=== PATIENT | female | born 1950 | race Caucasian/White ===

== ENCOUNTER 2016-12-11 19:39 | Emergency (ER) | payer MEDICARE ==
[2016-12-11 20:42] VITALS: BP 113/65
[2016-12-11] MEDS ORDERED: Fluorescein Sodium TOPICAL* 1 MG TEST ONE (20:55)
[2016-12-11] MEDS ORDERED: BSS OPTH.SOL* BTL ONE ×2 (20:56→20:57)
[2016-12-11] MEDS ORDERED: Tetracaine 0.5% OPTH.SOL 15ML* BTL ONE (20:58)
--- NOTE | 2016-12-11 21:39 | UC ---
Eye Complaint HPI - HPI Summary HPI Summary: ONSET OF LEFT EYE IRRITATION YESTERDAY AFTERNOON. HAS FB SENSATION AND SLIGHT TEARING. NO VISUAL DISTURBANCE, PHOTOPHOBIA, GUPTA OR NAUSEA. DOES NOT WEAR CONTACTS. NO HELP WITH OTC EYE GEL. - History of Current Complaint Chief Complaint: UCEye Stated Complaint: EYE IRRITATION Time Seen by Provider: 12/11/16 20:53 Hx Obtained From: Patient Hx Last Menstrual Period: 2002 Onset/Duration: Sudden Onset, Lasting Days, Still Present Timing: Constant Severity Initially: Moderate Severity Currently: Moderate Pain Intensity: 3 Pain Scale Used: 0-10 Numeric Character: Foreign Body Sensation Aggravating Factor(s): Blinking Alleviating Factor(s): Nothing Associated Signs And Symptoms: Positive: Drainage (Clear). Negative: Photophobia, Drainage (Purulent), Vision Impairment Bilateral, Vision Impairment Right, Vision Impairment Left, Fever, Swelling - Allergies/Home Medications Allergies/Adverse Reactions: Allergies Allergy/AdvReac Type Severity Reaction Status Date / Time Epinephrine Allergy Anaphylatic Verified 12/11/16 20:46 Shock [place] Allergy Rash And Verified 12/11/16 20:43 [From Resource Dairy Thick] Itching PMH/Surg Hx/FS Hx/Imm Hx Previously Healthy: Yes Endocrine History Of: Denies: Diabetes, Thyroid Disease Cardiovascular History Of: Denies: Cardiac Disorders, Hypertension Respiratory History Of: Denies: COPD, Asthma GI/ History Of: Denies: Ulcer Cancer History Of: Denies: Breast Cancer - Surgical History Surgical History: Yes Surgery Procedure, Year, and Place: D&C 1990 - Family History Known Family History: Negative: Hypertension - Social History Alcohol Use: Weekly Substance Use Type: None Smoking Status (MU): Never Smoked Tobacco - Immunization History Most Recent Influenza Vaccination: denies Review of Systems Constitutional: Negative Eyes: Drainage, Eye Redness, Other - FB SENSATION LEFT EYE Respiratory: Negative Cardiovascular: Negative Gastrointestinal: Negative Neurological: Negative All Other Systems Reviewed And Are Negative: Yes Physical Exam Triage Information Reviewed: Yes Appearance: Well-Appearing, No Pain Distress, Well-Nourished Vital Signs: Initial Vital Signs Temp 98.7 F 12/11/16 20:35 Pulse 60 12/11/16 20:35 Resp 18 12/11/16 20:35 BP 113/65 12/11/16 20:35 Pulse Ox 97 12/11/16 20:35 Vital Signs Reviewed: Yes Eyes: Positive: Conjunctiva Inflamed - LEFT EYE, Discharge - CLEAR DISCHARGE LEFT EYE, Other: - FLUORESCEIN UPTAKE LOWER CORNEA IN A LINEAR STREAK ENT: Positive: Hearing grossly normal Neck: Positive: Supple Respiratory: Positive: No respiratory distress, No accessory muscle use Cardiovascular: Positive: Pulses Normal Abdomen Description: Positive: Soft Musculoskeletal: Positive: No Edema Neurological: Positive: Alert Psychological: Positive: Age Appropriate Behavior Skin: Negative: rashes Eye Complaint Course/Dx - Differential Dx/Diagnosis Provider Diagnoses: LEFT EYE CORNEAL ABRASION Discharge - Discharge Plan Condition: Stable Disposition: HOME Prescriptions: Ketorolac Tromethamine (Ophth) [Acuvail] 0.5 % LEFT EYE QID PRN #1 bottle PRN Reason: Pain Patient Education Materials: Corneal Abrasion (ED) Referrals: Kathy Nayak MD [Primary Care Provider] - If Needed Additional Instructions: FOLLOW-UP WITH YOUR EYE DOCTOR IF YOUR SYMPTOMS ARE NOT IMPROVING EXPECTED OVER THE NEXT SEVERAL DAYS.
[2016-12-11] MEDS ORDERED: Ciprofloxacin 0.3% OPTH.SOL* 2.5 ML BTL LEFT EYE ONE (21:43)
== END 2016-12-11 21:53 | disposition home or self-care (01) ==
LOC: UCEAST 19:39
DX: S05.02XA Injury of conjunctiva and corneal abrasion without foreign body, left eye, initial encounter (principal); X58.XXXA Exposure to other specified factors, initial encounter; Y93.9 Activity, unspecified; Y92.9 Unspecified place or not applicable
CPT/HCPCS: 99212; A9270-GY; G0463

== ENCOUNTER 2019-02-22 07:13 | Emergency (ER) | payer MEDICARE ==
[2019-02-22 07:25] VITALS: BP 106/69
--- NOTE | 2019-02-22 07:50 | UC ---
Respiratory Complaint HPI - HPI Summary HPI Summary: Patient states starting on Saturday she had a sore throat. Patient states evening she developed a cough. Patient states yesterday she felt like it was congested tight in her chest. Patient states last night she developed a temperature to 100.4. Patient states her cough started to loosen and she's bringing up some yellow sputum. Patient states she had a fever again this morning and took Tylenol. Patient states her breathing feels better today. No wheeze. Mild head congestion no ear pain. Patient eating and drinking but less appetite. No nausea vomiting. No rash. 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 Patient's medications reviewed this visit. Patient is not immunocompromised - History of Current Complaint Chief Complaint: UCGeneralIllness Stated Complaint: FEVER/ COUGH/ SORE THROAT Time Seen by Provider: 02/22/19 07:31 Hx Obtained From: Patient Hx Last Menstrual Period: 2002 Severity Initially: Mild Severity Currently: Mild Pain Intensity: 2 - Allergies/Home Medications Allergies/Adverse Reactions: Allergies Allergy/AdvReac Type Severity Reaction Status Date / Time epinephrine Allergy Anaphylatic Verified 02/22/19 07:27 Shock dairy Allergy Unknown Uncoded 02/22/19 07:27 Reaction Details Home Medications: Home Medications Acetaminophen TAB* [Tylenol TAB*] 1,000 mg PO ONCE PRN 02/22/19 [History Confirmed 02/22/19] PMH/Surg Hx/FS Hx/Imm Hx Previously Healthy: Yes Respiratory History: Asthma - as child - Surgical History Surgical History: Yes Surgery Procedure, Year, and Place: D&C 1990 - Family History Known Family History: Positive: Non-Contributory Negative: Hypertension - Social History Occupation: Employed Full-time Lives: With Family Alcohol Use: Weekly Substance Use Type: None Smoking Status (MU): Never Smoked Tobacco - Immunization History Most Recent Influenza Vaccination: denies Review of Systems All Other Systems Reviewed And Are Negative: Yes Constitutional: Positive: Fever ENT: Positive: Sore Throat Respiratory: Positive: Cough Is Patient Immunocompromised?: No Physical Exam - Summary Physical Exam Summary: Vital Signs Reviewed: Yes A+Ox3, tired appearing Eyes: Conjunctiva Clear, IMRANDA. EOM intact and full ENT: Hearing grossly normal TM x 2 clear, mmoist, uvula midline, no exudate, no erythema Neck: Positive: Supple Respiratory: Positive: No respiratory distress, No accessory muscle use + mild intermittent cough decreased BS left base few scattered wheeze, speaking full easy sentences Cardiovascular: RRR nl s1, s2 no m/r CBT <2 sec abd soft + BS nt/nd no guarding, no distension Musculoskeletal Exam: RICHARDS x 4 without difficulty Strength Intact, ROM Intact Neurological: Positive: Alert, + sensation throughout Psychological: Positive: Normal Response To Family Skin: Positive: no rash, no ecchymosis Triage Information Reviewed: Yes Vital Signs: Initial Vital Signs Temp 98.5 F 02/22/19 07:18 Pulse 102 02/22/19 07:18 Resp 18 02/22/19 07:18 BP 106/69 02/22/19 07:18 Pulse Ox 93 02/22/19 07:18 Diagnostics - Radiology No standard instances Radiology Interpretation Completed By: Radiologist - Patient Name: DOTTIE CANELA Medical Record#: [id number] Ordering Physician: Kim Lockett MD Acct.#: [id number] : 1950 Age: 68 Sex: F Location: [facility] Exam Date: 02/22/19 0759 ADM Status: REG ER Order Information: CHEST PA & LAT 2 VWS Accession Number: [id number] CPT: 61284 INDICATION: Cough with audible wheezing at the left lung base COMPARISON: None TECHNIQUE: PA and lateral views of the chest were obtained. FINDINGS: The heart and mediastinum are normal in size and contour. On the AP view there is a focal density at the left lower lung. This may correspond to the focal density seen at the anterior lung base in the lateral view. In addition there is density overlying the costophrenic angle on the lateral view. Elsewhere the lungs are grossly clear. There is no evidence of large pleural effusion. Visualized bones are normal for the patient's age. There is no radiographic evidence of free air beneath the diaphragm IMPRESSION : THE SMALL FOCAL LEFT LUNG BASE DENSITY COULD BE PNEUMONIA IN THE CORRECT CLINICAL SETTING. I RECOMMEND FOLLOW-UP CHEST X-RAY AFTER AN APPROPRIATE COURSE OF THERAPY TO ASCERTAIN RESOLUTION. <Electronically signed by Carter Otero MD in OV> 02/22/19822 Dictated By: Carter Otero MD Dictated Date/Time: 02/22/19822 Transcribed Date/Time: 02/22/19820 Copy to: CC:Kathy Nayak MD; Kim Lockett MD Imaging - [facility] Imaging - [facility] Imaging - [facility] [address] [place], [place] [id number] [place] [id number] [place] [id number] ph [phone] ph ([phone] ph ) This report is only to be considered final once signed by the Provider(s) as displayed in the "<Electronically Signed by >" field (s). Absence of a signature indicates the report is in a draft status and still needs to be finalized. In the event this document was created by someone other than the signing Provider, the individual initiating the document will be listed in the "Entered by:" or "Dictated by:" scott. 1 of 2 Re-Evaluation - Re-Evaluation First Eval Re-Evaluation Time: 08:25 Comment: Review chest x-ray with patient. Patient with likely left lower lobe given clinical setting and history. Recommend antibiotic. Patient with hesitation to medications as doxycycline and she previous he taken without difficulty. Discussed again with patient albuterol MDI. Patient states she is willing to try it here and frontal mass first. So we will dispense of. Get a spacer and teaching. We'll monitor after use. We'll patient states sometimes she does get yeast infections will give Diflucan. Patient recommended she follow up with her primary care for repeat chest x-ray resolution of symptoms. Patient states understanding agreement. Patient essentially emergent department for symptoms worsen she feels short of breath or any concerns. Respiratory Course/Dx - Course Course Of Treatment: Patient presents stating Saturday she developed a sore throat. Patient states by she had a cough that chronic tight in her chest. Patient states she took [id number] [place] things loosened up and yesterday she started coughing up some yellow sputum. Patient states she developed a fever last night. Patient took Tylenol this morning. Patient states her breathing feels better today but she is tired. No nausea vomiting. Decreased appetite. On exam patient with slightly decreased oxygen saturation at 93. Patient does have decreased breath sounds on her left base. Patient is not toxic appearing. Patient is afebrile here but time Tylenol this morning. We'll do a chest x- ray. Patient declined albuterol neb here as he told there may cause shakiness culture to feel very anxious and she had a bad reaction to epinephrine. Patient states will considered but this point declines patient's rapid strep is negative - Differential Dx/Diagnosis Provider Diagnosis: CAP (community acquired pneumonia) Discharge - Sign-Out/Discharge Documenting (check all that apply): Patient Departure All imaging exams completed and their final reports reviewed: Yes - Discharge Plan Condition: Stable Disposition: HOME Prescriptions: DOXYcycline CAP(*) [DOXYcycline 100MG CAP(*)] 100 mg PO BID #20 cap Fluconazole [Diflucan 150 MG (NF)] 150 mg PO ONCE PRN #1 tab PRN Reason: vaginal yeast infection Patient Education Materials: Community Acquired Pneumonia (ED) Referrals: Kathy Nayak MD [Primary Care Provider] - Additional Instructions: -Take antibiotics exactly as prescribed until gone -Use your albuterol puffer - 2 puffs every 4 hours for the next 2 days - then as needed -Stay well hydrated - avoid excess caffeine and all alcohol - eat regular, healthy meals - These infections are spread by secretions - do NOT share eating or drinking utensils - clean items you share with other people such as cell phones, computer mouse, TV remote, computer tablets,etc.. Once you have been antibiotics for 2 days, change your toothbrush and your pillowcase. - you have been given a prescription for Diflucan - okay to take if you develop a vaginal yeast infection from antibiotics -Contact your doctor to arrange a follow-up appointment to make sure your infection has cleared. Call your doctor, return here or go to the emergency department with any questions or concerns - Billing Disposition and Condition Condition: STABLE Disposition: Home
[2019-02-22] MEDS ORDERED: Albuterol HFA INHALER* 8 gm MDI INH ONE (08:32)
== END 2019-02-22 08:54 | disposition home or self-care (01) ==
LOC: UCEAST 07:13
DX: J18.9 Pneumonia, unspecified organism (principal); Z88.8 Allergy status to other drugs, medicaments and biological substances; Z91.011 Allergy to milk products
CPT/HCPCS: 71046; 87651; 99213; A9270-GY; G0463

== ENCOUNTER 2019-04-20 12:49 | Emergency (ER) | payer MEDICARE ==
--- NOTE | 2019-04-20 12:56 | UC ---
Skin Complaint HPI - History of Current Complaint Time Seen by Provider: 04/20/19 12:56 Stated Complaint: TICK Hx Last Menstrual Period: 2002 - Allergy/Home Medications Allergies/Adverse Reactions: Allergies Allergy/AdvReac Type Severity Reaction Status Date / Time epinephrine Allergy Anaphylatic Verified 02/22/19 07:27 Shock dairy Allergy Unknown Uncoded 02/22/19 07:27 Reaction Details PMH/Surg Hx/FS Hx/Imm Hx - Surgical History Surgical History: Yes Surgery Procedure, Year, and Place: D&C 1990 - Family History Known Family History: Positive: Non-Contributory Negative: Hypertension - Social History Alcohol Use: Weekly Substance Use Type: None Smoking Status (MU): Never Smoked Tobacco - Immunization History Most Recent Influenza Vaccination: denies Discharge - Discharge Plan Referrals: Kathy Nayak MD [Primary Care Provider] -
[2019-04-20 13:03] VITALS: BP 108/70
--- NOTE | 2019-04-20 13:11 | UC ---
Skin Complaint HPI - HPI Summary HPI Summary: 69 year old female presents with complaints of a tick bite to the left inner thigh. States she was working outdoors 2 days ago and when she came inside she discovered a tick to the left inner thigh. Removed immediately. Patient brought the tick into the clinic and it appears to be an adult female deer tick that is not engorged. States today she noticed increased redness around the site of the bite. Denies fever, chills, flu-like illness, myalgias, joint pain or swelling. - History of Current Complaint Chief Complaint: UCSkin Time Seen by Provider: 04/20/19 12:56 Stated Complaint: TICK Hx Obtained From: Patient Hx Last Menstrual Period: 2002 Pain Intensity: 1 - Allergy/Home Medications Allergies/Adverse Reactions: Allergies Allergy/AdvReac Type Severity Reaction Status Date / Time epinephrine Allergy Anaphylatic Verified 04/20/19 12:56 Shock dairy Allergy Unknown Uncoded 04/20/19 12:56 Reaction Details PMH/Surg Hx/FS Hx/Imm Hx Previously Healthy: Yes - Denies significant PMH - Surgical History Surgical History: Yes Surgery Procedure, Year, and Place: D&C 1990 - Family History Known Family History: Positive: Non-Contributory - Social History Occupation: Employed Full-time Alcohol Use: Weekly Substance Use Type: None Smoking Status (MU): Never Smoked Tobacco - Immunization History Most Recent Influenza Vaccination: denies Review of Systems All Other Systems Reviewed And Are Negative: Yes Constitutional: Negative: Fever, Chills Skin: Positive: Other - See HPI Respiratory: Positive: Negative Cardiovascular: Positive: Negative Gastrointestinal: Positive: Negative Genitourinary: Positive: Negative Musculoskeletal: Negative: Arthralgia, Myalgia Neurological: Positive: Negative Is Patient Immunocompromised?: No Physical Exam - Summary Physical Exam Summary: GENERAL APPEARANCE: Well developed, well nourished, alert and cooperative, and appears to be in no acute distress. CARDIAC: Normal S1 and S2. No S3, S4 or murmurs. Rhythm is regular. There is no peripheral edema, cyanosis or pallor. Extremities are warm and well perfused. Capillary refill is less than 2 seconds. Peripheral pulses intact. LUNGS: Clear to auscultation without rales, rhonchi, wheezing or diminished breath sounds. ABDOMEN: Positive bowel sounds. Soft, nondistended, nontender. No guarding or rebound. No masses or hepatosplenomegally. MUSKULOSKELETAL: ROM intact to all extremities. No joint erythema or tenderness. Normal muscular development. Normal gait. EXTREMITIES: No significant deformity or joint abnormality. No edema. SKIN: Skin normal color, texture and turgor. Erythematous, raised macular lesion ~1 cm in diameter with a small dark central area. There is some mild erythema that extends ~2-3 cm from the margins of the lesion. No induration, fluctuance, drainage, or increased warmth noted. Triage Information Reviewed: Yes Vital Signs: Initial Vital Signs Temp 97.9 F 04/20/19 12:57 Pulse 63 04/20/19 12:57 Resp 16 04/20/19 12:57 BP 108/70 04/20/19 12:57 Pulse Ox 97 04/20/19 12:57 Vital Signs Reviewed: Yes Course/Dx - Course Course Of Treatment: 69 year old female presents with complaints of a tick bite to the left inner thigh. States she was working outdoors 2 days ago and when she came inside she discovered a tick to the left inner thigh. Removed immediately. Patient brought the tick into the clinic and it appears to be an adult female deer tick that is not engorged. States today she noticed increased redness around the site of the bite. Denies fever, chills, flu-like illness, myalgias, joint pain or swelling. Afebrile. VSS. Patient had erythematous, raised macular lesion ~1 cm in diameter with a small dark central area. There is some mild erythema that extends ~2-3 cm from the margins of the lesion. No induration, fluctuance, drainage, or increased warmth noted. Remainder of exam was unremarkable. Based on her history and exam the redness around the site of the bite likely represents a localized reaction vs secondary bacterial infection. Will start her on doxycyline 100 mg BID x 7 days to treat for a secondary infection. She is to follow up with her PCP in 7 days if symptoms persist. Anticipatory guidance and warning symptoms reviewed with patient. Verbalizes understanding and agrees with POC. - Differential Diagnoses - Skin Complaint Differential Diagnoses: Cellulitis, Local Allergic Reaction, Tick Born Illness - Diagnoses Provider Diagnosis: Tick bite of left thigh with infection Discharge - Sign-Out/Discharge Documenting (check all that apply): Patient Departure All imaging exams completed and their final reports reviewed: No Studies - Discharge Plan Condition: Stable Disposition: HOME Prescriptions: Doxycycline Hyclate 100 mg PO BID #14 tablet Patient Education Materials: Tick Bite (ED) Referrals: Kathy Nayak MD [Primary Care Provider] - 7 Days Additional Instructions: Ticks transmit infection only after they have attached and then taken a blood meal from their new host. A tick that has not attached cannot not pass any infection. Since the deer tick that transmits Lyme disease typically feeds for more than 36 hours before transmitting the organisim that causes Lyme disease, the risk of acquiring Lyme disease from an tick bite is extremely small, even in an area where the disease is common. There is no benefit of blood testing for Lyme disease at the time of the tick bite because even people who become infected will not have a positive blood test until approximately two to six weeks after the tick bite. The site of your bite appears to be a local reaction to the bite or possibly a secondary bacterial infection of the bite. We will start you on doxycycline 100 mg twice a day for 7 days to treat for a possible secondary bacterial infection of the skin. To try to avoid getting bitten by a tick, you can: * Wear shoes, long-sleeved shirts, and long pants when you go outside. Keep ticks away from your skin by tucking your pants into your socks. * Wear light colors so you can spot any ticks that get on your clothes. * Wear bug spray or cream that contains DEET. (Do not use DEET on babies younger than 2 months.) On your clothes and gear, you can use bug repellents that have a chemical called "permethrin." * Shower within 2 hours of being outdoors if you think you have been in an area where there are ticks. * Put dry clothes briefly (for about 4 minutes) in a dryer after being outdoors. * Check your clothes and body for ticks after being outdoors. Be sure to check your scalp, waist, armpits, groin, and backs of your knees. Check your children , too. After a tick bite, you will need to monitor for signs of Lyme disease over the next several weeks even if you have been given antibiotics to prevent the infection. Seek immediate medical attention if you develop a bullseye rash, fever, flu-like symptoms including headache, stiff neck, fatigue, muscle aches, joint pain or swelling. - Billing Disposition and Condition Condition: STABLE Disposition: Home
== END 2019-04-20 13:30 | disposition home or self-care (01) ==
LOC: UCEAST 12:49
DX: S70.362A Insect bite (nonvenomous), left thigh, initial encounter (principal); L08.9 Local infection of the skin and subcutaneous tissue, unspecified; W57.XXXA Bitten or stung by nonvenomous insect and other nonvenomous arthropods, initial encounter; Y92.096 Garden or yard of other non-institutional residence as the place of occurrence of the external cause; Z88.8 Allergy status to other drugs, medicaments and biological substances; Z91.011 Allergy to milk products
CPT/HCPCS: 99212; G0463